=== PATIENT | male | born 1980 | race Caucasian/White ===

== ENCOUNTER 2022-10-07 12:57 | Outpatient (CLI) | payer OTHER, SELFPAY | END 2022-10-07 12:58 | disposition home or self-care (01) | LOC: RAD 12:59 | PROVIDERS: PCP Family Medicine; Visit Provider Internal Medicine Cardiovascular Disease | DX: I77.810 Thoracic aortic ectasia (principal); I34.0 Nonrheumatic mitral (valve) insufficiency | CPT/HCPCS: 93306 ==

== ENCOUNTER 2024-02-23 08:50 | Outpatient (CLI) | payer OTHER, SELFPAY ==
--- OUTSIDE RECORDS SUMMARY | 2024-02-24 12:35 | XMS_ITS ---
Author Name Unknown Organization [facility] Address [address] [place] [address] Care Team Providers Care Lead Material Handler Name Role Phone Unavailable Unavailable Unavailable Surgery Details Not on file Complications Check Surgery Details section. Procedure Estimated Blood Loss Check Surgery Details section. Procedure Findings Check Surgery Details section. Procedure Specimens Taken Check Surgery Details section.
--- OUTSIDE RECORDS SUMMARY | 2024-02-24 12:35 | XMS_ITS | Encounter Summary ---
Author Name Unknown Organization [facility] Address [address] [place] [address] Care Team Providers Care Final Inspector Truck Trailer Name Role Phone Unavailable Primary Care Provider Unavailabl e Reason for Visit * Reason Comments Eye Exam * Appointment Request (Routine) - Closed Specialty Diagnoses / Procedures Referred By Lobo arriaza Referred To Contact Ophthalmology Diagnoses Erosion Corneal Recurrent Bilateral Referral ID Status Reason Start Date Expiration Date Visits Re quested Visits Authorized [id number] Closed 10/20/2023 10/19/2024 1 1 Encounter Details Date Type Department Care Team (Latest Contact Info) Description 11/25/2023 11:15 AM TOOL AND DIE MAKER LEVEL FIVE Comprehensive Visit Department of Ophthalmology in [place], [place] [address] [place] [address] Max Jimenez M.D. [address] [place] [address] Erosion Corneal Recurrent Bilateral (Primary Dx); Dry Eye Syndrome Bilateral Social History Tobacco Use Types Packs/Day Years Used Date Smoking Tobacco: Never Smokeless Tobacco: Never Alcohol Use Standard Drinks/Week Comments Not Currently 1 (1 standard drink = 0.6 oz pur e alcohol) Humiliation, Afraid, Rape, and Kick questionnair e Answer Date Recorded Within the last year, have y ou been afraid of your partner or ex-partner? No 02/28/2023 Within the last year, have y ou been humiliated or emotionally abused in other ways by your partner or ex-partner? No Within the last year, have y ou been kicked, hit, slapped, or otherwise physically hurt by your partner or ex-partner? No 02/28/2023 Within the last year, have y ou been raped or forced to have any kind of sexual activity by your partner or ex-partner? No 02/28/2023 Social Connection and Isolat ion Panel [NHANES] Answer Date Recorded In a typical week, how many times do you talk on the phone with family, friends, or neighbors? More than three times a week 02/28/2023 How often do you get togethe r with friends or relatives? Once a week 02/28/2023 How often do you attend chur ch or pentecostal services? Never 02/28/2023 Do you belong to any clubs o r organizations such as gnosticism groups, unions, fraternal or athletic groups, or school groups? No 02/28/2023 How often do you attend meet ings of the clubs or organizations you belong to? Never 02/28/2023 Are you , , di vorced, , never , or living with a partner? 02/28/2023 AUDIT-C Answer Date Recorded Q1: How often do you have a drink containing alc ohol? Monthly or less 02/28/2023 Q2: How many drinks containi ng alcohol do you have on a typical day when you are drinking? 1 or 2 02/28/2023 Q3: How often do you have si x or more drinks on one occasion? Never 02/28/2023 Overall Financial Resource Strain (CARDIA) Answe r Date Recorded How hard is it for you to pa y for the very basics like food, housing, medical care, and heating? Not hard at all 02/28/2023 PHQ-2 Answer Date Recorded PHQ-2 Score 3 03/08/2023 [facility] - Occupational Stress Questionnaire Answer Date Recorded Do you feel stress - tense, restless, nervous, or anxious, or unable to sleep at night because your mind is troubled all the time - these days? To some extent 02/28/2023 Exercise Vital Sign Answer Date Recorde d On average, how many days pe r week do you engage in moderate to strenuous exercise (like a brisk walk)? 1 day 02/28/2023 On average, how many minutes do you engage in exercise at this level? 20 min 02/28/2023 Hunger Vital Sign Answer Date Recorded Within the past 12 months, y ou worried that your food would run out before you got the money to buy more. Never true 02/29/20 Within the past 12 months, t he food you bought just didn't last and you didn't have money to get more. Never true 02/28/2023 PRAPARE - Transportation Answer Date Re corded In the past 12 months, has l ack of transportation kept you from medical appointments or from getting medications? No 02/08 In the past 12 months, has l ack of transportation kept you from meetings, work, or from getting things needed for daily living? No 02/28/2023 Housing Stability Vital Sign Answer Alex e Recorded In the last 12 months, was t here a time when you were not able to pay the mortgage or rent on time? No 02/28/2023 In the last 12 months, how many places have you lived? 1 02/28/2023 In the last 12 months, was t here a time when you did not have a steady place to sleep or slept in a intermediate (including now)? No 02/28/2023 Depression Answer Date Recor ded PHQ-9 Total Score (max 27) 11 03/08 Nutrition Answer Date Recorded Nutrition: EVOO Fat Source Yes 02/28 On average, how many serving s of fruits and vegetables do you eat per day (serving size is equal to 1 cup or approximately the size of a tennis ball)? 0-1 02/28/2023 Dental Answer Date Recorded Dental: Regular Dentist Yes 10/14/19 Employment Answer Date Recorded Employment status Employed and actively working without restrictions 02/28/2023 Education Answer Date Recorded What is the highest level of school you have completed or the highest degree you have received? Doctorate 12/13/2020 Sex and Gender Information Value Date Recorded Sex Assigned at Male 02/28/2023 10:49 AM CDT Gender Identity Male 12/13/2020 7:34 PM TOOL AND DIE MAKER LEVEL FIVE Sexual Orientation Straight 12/13/2020 7: 34 PM TOOL AND DIE MAKER LEVEL FIVE documented as of this encounter Progress Notes * Max Jimenez M.D. - 11/25/2023 11:15 AM CST # Recurrent erosions both eyes # hx photorefractive keratectomy both eyes, 2013 # sp stromal puncture both eyes 2020 Both eyes are affected, the right worse than left. The symptoms are most noticeable in the morning and are similar to what he experienced with his previous corneal erosions but milder. These have been ongoing for the last 6-8 months has become more frequent. He caught pink eye from his child about a month ago which caused significant pain. He is not currently using any drops. Has previously tried doxycycline with no improvement in sx No erosions on exam today. Recommend Mary Jo ointment at bedtime ongoing Next steps would be to try Punctal plugs to increase moisture on the eye - he will call if he chooses to pursue this option Options to start doxycycline and/or Restasis AND DIE MAKER LEVEL FIVE documented in this encounter Plan of Treatment Upcoming Encounters Date Type Department Care Team (Latest Contact Info) Description 04/30/2024 7:45 AM CDT Clinical Communication Virtual Review in [address] [phone] 05/03/2024 8:30 AM CDT Appointment Department of Laboratory Medicine and Pathology, [facility], in [address] [address] Harini Mc APRN, C.N.P., D.N.P. [address] [place] [phone] 05/03/2024 9:55 AM CDT Appointment Department of Cardiovascular Diseases in [address] [address] Haily Martinez M.D. [address] [place] [phone] Discharge Disposition: Home or Self Care 05/03/2024 1:00 PM CDT Office Visit Department of Cardiovascular Medicine in [address] [phone] Harini Mc APRN, C.N.P., D.N.P. [address] [place] [phone] 05/03/2024 2:30 PM CDT Clinical Support Department of Social Work in [place], [place] [address] [place] [address] documented as of this encounter Visit Diagnoses Diagnosis Erosion Corneal Recurrent Bilateral- Primary Dry Eye Syndrome Bilateral documented in this encounter Additional Health Concerns Assessment Noted Time PHQ-9 Depression Total Score: 11 023 2:31 PM CDT documented as of this encounter
--- OUTSIDE RECORDS SUMMARY | 2024-02-24 12:35 | XMS_ITS | Clinical Summary ---
Author Name Unknown Organization [facility] Address [address] [place] [address] Care Team Providers Care Park Worker Name Role Phone Unavailable Primary Care Provider Unavailabl e Source Comments Patient records contain information from all sites at [facility]. For routine questions regarding patient records, call [phone] during business hours, M-F 8:00 AM - 5:00 PM Central Time. Record requests for emergency care only can be directed to [phone] at any time.[facility] Allergies Active Allergy Reactions Criticality Noted Date Comments Penicillin Rash Medium 09/08/2018 Penicillins Other (see comments) 09/26/2018 Medications Medication Sig Dispensed Refills Start Date End Date Status propranoloL (INDERAL) 10 mg tablet Take 10 mg by mouth daily. Active multivitamin capsule Take 1 capsule by mouth daily. Active cetirizine (ZyrTEC) 10 mg tablet Take 10 mg by mouth as needed. 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 12/22/2023 Orders Only Department of Social Work in [place], [place] [address] [place] [phone] Ani Kiran L.I.C.S.W. Anxiety (Primary Dx); Aneurysm (HCC) from Last 3 Months Family History Medical History Relation Name Comments Genetic disease Brother Scott Valerio Long Qt Other cancer Father Sean Valerio Stomach cance r, Skin cancer Father's Sister Aislinn Kwan Colon cancer Maternal Grandmother Elma Ruffin Genetic disease Mother Lisa oRgers Long Qt Coronary artery disease Mother's Brother Damaso Abernathy y Stent, heart attack Genetic disease Mother's Sister Cookie Gallagher Long Qt Coronary artery disease Paternal Grandfather Sean morejon Heart attack Relation Name Status Comments Brother Scott Valerio Father Sean Valerio Father's Sister Aislinn Kwan Maternal Grandmother Elma Ruffin Mother Lisa Rogers Mother's Brother Damaso Ruffin Mother's Sister Cookie Gallagher Paternal Grandfather Sean Valerio Social History Tobacco Use Types Packs/Day Years Used Date Smoking Tobacco: Never Smokeless Tobacco: Never Tobacco Cessation:Counseling Given: Not Answered Alcohol Use Standard Drinks/Week Comments Not Currently [...] often do you attend chur ch or christianity services? Never 02/28/2023 Do you belong to any clubs o r organizations such as orthodox groups, unions, fraternal or athletic groups, or [...] Answer Date Recorded PHQ-2 Score 3 03/08/2023 [facility] of Occupat ional Health - Occupational Stress [...] money to buy more. Never true 02/29/20 23 Within the past 12 months, t he [...] place to sleep or slept in a long term (including now)? No 02/28/2023 Depression Answer Date [...] CDT Gender Identity Male 12/13/2020 7:34 PM DEGREASING SOLUTION RECLAIMER Sexual Orientation Straight 12/13/2020 7: 34 PM DEGREASING SOLUTION RECLAIMER Last Filed Vital Signs Vital Sign Reading Time Taken Comments Blood Pressure 118/82 03/03/2023 7:33 AM CDT Pulse 48 03/03/2023 7:33 AM CDT Temperature - - Respiratory Rate - - Oxygen Saturation 98% 03/03/2023 7:31 AM CDT Inhaled Oxygen Concentration - - Weight 91.8 kg (202 lb 7.9 oz) 03/03/2023 7:31 A M CDT Height 175.9 cm (5' 9.25) 03/03/2023 7:31 AM CD T Body Mass Index 29.69 03/03/2023 7:31 AM CDT Plan of Treatment Upcoming Encounters Date Type Department Care Team (Latest Contact Info) Description 04/30/2024 7:45 AM CDT Clinical Communication Virtual Review in [place], [place] [address] [place] [address] 05/03/2024 8:30 AM CDT Appointment Department of Laboratory Medicine and Pathology, [facility], in [place], [place] [address] [place] [address] Harini Mc APRN, C.N.P., D.N.P. [address] [place] [phone] 05/03/2024 9:55 AM CDT Appointment Department of Cardiovascular Diseases in [place], [place] [address] [place] [phone] Haily Martinez M.D. [address] [place] [phone] Discharge Disposition: Home or Self Care 05/03/2024 1:00 PM CDT Office Visit Department of Cardiovascular Medicine in [place], [place] [address] [place] [phone] Harini Mc APRN, C.N.P., D.N.P. [address] [place] [phone] 05/03/2024 2:30 PM CDT Clinical Support Department of Social Work in [place], [place] [address] [place] [phone] Health Maintenance Due Date Last Done Comments CT Colonography 1978 Cologuard 1978 Colonoscopy 1978 Colorectal Cancer Screening 1978 FIT 1978 HIV Screening 1978 Hepatitis C Screening 1978 Hepatitis B Vaccines (1 of 3 - 19+ 3-dose series) 1997 DTaP,Tdap,and Td Vaccines (1 - Tdap) 01/16/2005 01/15/2005 Depression Screening (Annual PHQ-2) 10/10/2023 Fasting Glucose for Diabetes Screening 12/19/2023 12/18/2020 Lipid (Cholesterol) Screening 03/02/2028 03/02/2023, 12/18/2020 COVID-19 Vaccine Completed 08/10/2023, , 09/17/2021, Additional history exists Influenza Vaccine Completed 08/10/2023, , 07/21/2021, Additional history exists HPV Vaccines Aged Out No longer eligi ble based on patient's age to complete this topic Pneumococcal vaccine (0-64 years) Aged Out No longer eligible based on patient's age to complete this topic Medical Devices Implanted Type Area Mastic Floor Layer Device Identifier Shelf Expiration Date Model / Serial / Lot Hardware E.G. Pins/Screws/R ods Hardware e.g. pins/screws/ rods Bilateral: Mandible Description:Hardware from pr ior surgery 1995 Procedures Procedure Name Priority Date/Time Associated Diagnosis Comments LIPID PANEL, S Routine 03/02/2023 8:09 AM CDT Dilatation Ascending Aorta (HCC) GLUCOSE, FASTING, S/P Routine 12/18/2020 9:45 AM DEGREASING SOLUTION RECLAIMER Bicuspid Aortic Valve (HCC) Aneurysm Aortic Ascending Without Rupture (HCC) from Last 3 Months or Most Recently Relevant to Health Maintenance Results * (ABNORMAL) Lipid Panel (03/02/2023 8:09 AM CDT) Triglycerides 191(H) mg/dL 03/02/2023 9:13 AM CDT DTL Comment: ----REFERENCE VALUE---- Normal: <150 mg/dL Borderline High: 150-199 mg/dL High: 200-499 mg/dL Very High: > or =500 mg/dL Cholesterol, Total 206(H) mg/dL 2022 9:13 AM CDT DTL Comment: ----REFERENCE VALUE---- Desirable: < 200 mg/dL Borderline High: 200 - 239 mg/dL High: > or = 240 mg/dL Cholesterol, LDL, Calculated 140(H) mg/dL 03/02/2023 9:13 AM CDT DTL Comment: ----REFERENCE VALUE---- Desirable: <100 mg/dL Above Desirable: 100-129 mg/dL Borderline High: 130-159 mg/dL High: 160-189 mg/dL Very High: >=190 mg/dL ----ADDITIONAL INFORMATION---- LDL cholesterol calculated using the Ace/NIH equation. Cholesterol, HDL, S 31(L) >=40 mg/dL 03/02/2023 9:13 AM CDT DTL Cholesterol, Non-HDL, Calculated 175(H) mg/dL 03/02/2023 9:13 AM CDT DTL Comment: ----REFERENCE VALUE---- Desirable: <130 mg/dL Above Desirable: 130-159 mg/dL Borderline High: 160-189 mg/dL High: 190-219 mg/dL Very High: > or =220 mg/dL Fasting (8 HR or more) Yes 03/02/2023 8:51 AM CDT DTL Blood (Blood, Venous) 03/02/2023 8:09 AM CDT 03/02/2023 8:51 AM CDT Haily Martinez M.D. LAB BLOOD ADD-ON Performing Organization Address City/[facility]/ZIP Co de Phone Number [facility] [address] [place] [address], [facility] DTL [facility] [address] [place] [address] * Glucose, Fasting (12/18/2020 9:45 AM DEGREASING SOLUTION RECLAIMER) Glucose, P 88 70 - 100 mg/dL 12/18/2020 10:45 AM DEGREASING SOLUTION RECLAIMER DTL Last Intake 16 hr 12/18/2020 10:11 AM DEGREASING SOLUTION RECLAIMER DTL Blood (Blood, Venous) 12/18/2020 9:45 AM DEGREASING SOLUTION RECLAIMER 12/18/2020 10:11 AM DEGREASING SOLUTION RECLAIMER Haily Martinez M.D. LAB BLOOD NON ADD- ON Performing Organization Address City/[facility]/ZIP Co de Phone Number [facility] [address] [place] [address], [facility] DTL [facility] [address] [place] [address] from Last 3 Months or Most Recently Relevant to Health Maintenance
--- OUTSIDE RECORDS SUMMARY | 2024-02-24 12:35 | XMS_ITS | Encounter Summary ---
Author Name Unknown Organization [facility] Address [address] [place] [address] Care Team Providers Care Wagon Driver Salesperson Name Role Phone Unavailable Primary Care Provider Unavailabl e Reason for Visit * Reason Onset Date Comments Pre-visit Intake 11/22/2023 Encounter Details Date Type Department Care Team (Latest Contact Info) Description 11/22/2023 3:45 PM RADIATION OFFICER Clinical Communication Virtual Review in [place], [place] [address] [place] [address] Pre-visit Intake Social History Tobacco Use Types Packs/Day Years [...] often do you attend chur ch or mandaeism services? Never 02/28/2023 Do you belong to any clubs o r organizations such as denominational groups, unions, fraternal or athletic groups, or [...] Answer Date Recorded PHQ-2 Score 3 03/08/2023 [facility] - Occupational Stress Questionnaire Answer Date Recorded [...] place to sleep or slept in a fdc (including now)? No 02/28/2023 Depression Answer Date [...] CDT Gender Identity Male 12/13/2020 7:34 PM RADIATION OFFICER Sexual Orientation Straight 12/13/2020 7: 34 PM RADIATION OFFICER documented as of this encounter Plan of Treatment Upcoming Encounters Date Type Department Care Team (Latest Contact Info) Description 04/30/2024 7:45 AM CDT Clinical Communication Virtual Review in [place], [place] [address] [place] [address] 05/03/2024 8:30 AM CDT Appointment Department of Laboratory Medicine and Pathology, [facility], in [place], [place] [address] [place] [phone] Harini Mc APRN, C.N.P., D.N.P. [address] [place] [phone] 05/03/2024 9:55 AM CDT Appointment Department of Cardiovascular Diseases in [place], [place] [address] [place] [phone] Haily Martinez M.D. [address] [place] [phone] Discharge Disposition: Home or Self Care 05/03/2024 1:00 PM CDT Office Visit Department of Cardiovascular Medicine in [place], [place] [address] [place] [phone] Harini Mc APRN, C.N.P., D.N.P. [address] [place] [phone] 05/03/2024 2:30 PM CDT Clinical Support Department of Social Work in [place], [place] [address] [place] [phone] documented as of this encounter Visit Diagnoses Not on filedocumented in this encounter Additional Health Concerns Assessment Noted Time PHQ-9 Depression Total Score: 11 023 2:31 PM CDT documented as of this encounter
--- OUTSIDE RECORDS SUMMARY | 2024-02-24 12:35 | XMS_ITS | Encounter Summary ---
Author Name Unknown Organization [facility] Address [address] [place] [address] Care Team Providers Care Supervisor Painting Shipyard Name Role Phone Unavailable Primary Care Provider Unavailabl e Encounter Details Date Type Department Care Team (Latest Contact Info) Description 10/20/2023 Clinical Communication Department of Ophthalmology in [place], [place] [address] [place] [address] Provider, Unknown Social History Tobacco Use Types Packs/Day Years [...] week 02/28/2023 How often do you attend [facility] or church services? Never 02/28/2023 Do you belong to any clubs o r organizations such as samaritan groups, unions, fraternal or athletic groups, or [...] Answer Date Recorded PHQ-2 Score 3 03/08/2023 [facility] of Occupat ional [facility] - Occupational Stress Questionnaire Answer [...] place to sleep or slept in a snf (including now)? No 02/28/2023 Depression Answer Date [...] CDT Gender Identity Male 12/13/2020 7:34 PM BUTTON SPINDLER Sexual Orientation Straight 12/13/2020 7: 34 PM BUTTON SPINDLER documented as of this encounter Plan of Treatment Upcoming Encounters Date Type Department Care Team (Latest Contact Info) Description 04/30/2024 7:45 AM CDT Clinical Communication Virtual Review in [place], [place] 200 [place] [phone] 05/03/2024 8:30 AM CDT Appointment Department of Laboratory Medicine and Pathology, [facility], in [place], [place] [address] [place] [phone] Harini Mc APRN, C.N.P., D.N.P. [address] [place] [phone] 05/03/2024 9:55 AM CDT Appointment Department of Cardiovascular Diseases in [place], [place] [address] [place] [phone] Haily Martinez M.D. [address] [place] [phone] Discharge Disposition: Home or Self Care 05/03/2024 1:00 PM CDT Office Visit Department of Cardiovascular Medicine in [place], [place] [address] [place] [phone] Harini Mc APRN, C.N.P., D.N.P. [address] [place] [phone] 05/03/2024 2:30 PM CDT Clinical Support Department of Social Work in [place], [place] [address] [place] [phone] documented as of this encounter Visit Diagnoses Not on filedocumented in this encounter Additional Health Concerns Assessment Noted Time PHQ-9 Depression Total Score: 11 03/08/ 023 2:31 PM CDT documented as of this encounter
--- OUTSIDE RECORDS SUMMARY | 2024-02-24 12:35 | XMS_ITS | Encounter Summary ---
Author Name Unknown Organization [facility] Address [address] [place] [address] Care Team Providers Care Change Management Manager Name Role Phone Unavailable Primary Care Provider Unavailabl e Reason for Referral * Outpatient (Routine) - Authorized Specialty Diagnoses / Procedures Referred By Lobo arriaza Referred To Contact Social Work Diagnoses Aneurysm (HCC) Ani Kiran L.I.C.S.W. [address] [place] [phone] [facility] Referral ID Status Reason Start Date Expiration Date V isits Requested Visits Authorized [id number] Authorized 12/22/2023 06/22/2025 1 1 Encounter Details Date Type Department Care Team (Late st Contact Info) Description 12/22/2023 Orders Only Department of Social Work in [place], [place] [address] [place] [phone] Ani Kiran L.I.C.S.W. [address] [place] [phone] Anxiety (Primary Dx); Aneurysm (HCC) Social History Tobacco Use Types Packs/Day Years [...] often do you attend chur ch or temple services? Never 02/28/2023 Do you belong to any clubs o r organizations such as bahai groups, unions, fraternal or athletic groups, or [...] Answer Date Recorded PHQ-2 Score 3 03/08/2023 [facility] of Occupat ional Health - Occupational [...] place to sleep or slept in a assisted (including now)? No 02/28/2023 Depression Answer Date [...] CDT Gender Identity Male 12/13/2020 7:34 PM COMMUNITY HEALTH ADVOCATE Sexual Orientation Straight 12/13/2020 7: 34 PM COMMUNITY HEALTH ADVOCATE documented as of this encounter Plan of Treatment Upcoming Encounters Date Type Department Care Team (Latest Contact Info) Description 04/30/2024 7:45 AM CDT Clinical Communication Virtual Review in [place], [place] 200 [place] [address] 05/03/2024 8:30 AM CDT Appointment Department of Laboratory Medicine and Pathology, [facility] in [address] [phone] Harini Mc APRN, C.N.P., D.N.P. [address] [place] [phone] 05/03/2024 9:55 AM CDT Appointment Department of Cardiovascular Diseases in [address] [phone] Haily Martinez M.D. [address] [place] [phone] Discharge Disposition: Home or Self Care 05/03/2024 1:00 PM CDT Office Visit Department of Cardiovascular Medicine in [address] [phone] Harini Mc APRN, C.N.P., D.N.P. [address] [place] [phone] 05/03/2024 2:30 PM CDT Clinical Support Department of Social Work in [address] [phone] Scheduled Referrals Name Type Priority Associated Diagnoses Orde r Schedule Social Work - General consult (clinic) Outpatient Referral Routine Aneurysm (HCC) Expected: 03/26/2024, Expires: 03/23/2025 documented as of this encounter Visit Diagnoses Diagnosis Anxiety- Primary Aneurysm (HCC) documented in this encounter Additional Health Concerns Assessment Noted Time PHQ-9 Depression Total Score: 11 05/30/2 023 2:31 PM CDT documented as of this encounter
--- OUTSIDE RECORDS SUMMARY | 2024-02-24 12:35 | XMS_ITS | Referral Summary ---
Author Name Unknown Organization [facility] Address [address] [place] [address] Care Team Providers Care Prevention Rn Name Role Phone Unavailable Primary Care Provider Unavailabl e Source Comments Patient records contain information from all sites at [facility]. For routine questions regarding patient records, call [phone] during business hours, M-F 8:00 AM - 5:00 PM Central Time. Record requests for emergency care only can be directed to [phone] at any time.[facility] Encounters Date Type Department Care Team Description 02/20/2024 Clinical Communication Department of Cardiovascular Medicine in [place], [place] [address] [place] [address] Cost Estimating ManagerWilner M.D. 12/22/2023 Orders Only Department of Social Work in [place], [place] [address] [place] [address] Ani Kiran, L.I.C.S.W. Anxiety (Primary Dx); Aneurysm (HCC) from Last 3 Months Allergies Active Allergy Reactions Criticality Noted Date [...] Syndrome Dilatation Ascending Aorta Bicuspid Aortic Valve Social History Tobacco Use Types Packs/Day Years [...] often do you attend chur ch or jehovah's witness services? Never 02/28/2023 Do you belong to any clubs o r organizations such as anabaptism groups, unions, fraternal or athletic groups, or [...] Answer Date Recorded PHQ-2 Score 3 03/08/2023 [facility] of Occupat ional Health - Occupational [...] place to sleep or slept in a senior living (including now)? 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 [address] [place] [phone] 05/03/2024 9:55 AM CDT Appointment Department of Cardiovascular Diseases in [address] [address] Haily Martinez M.D. [address] [place] [phone] Discharge Disposition: Home or Self Care 05/03/2024 1:00 PM CDT Office Visit Department of Cardiovascular Medicine in [address] [phone] Harini Mc APRN, C.N.P., D.N.P. 200 [place] [address] 05/03/2024 2:30 PM CDT Clinical Support Department of Social Work in [place], [place] 200 [place] [phone] Medical Devices Implanted Type Area Horticultural Therapist Device Identifier Shelf Expiration Date Model / Serial / Lot Hardware E.G. Pins/Screws/R ods Hardware e.g. pins/screws/ rods Bilateral: Mandible Description:Hardware from pr ior surgery 1995 Procedures Procedure Name Priority Date/Time Associated Diagnosis Comments LIPID PANEL, S Routine 03/02/2023 8:09 AM CDT Dilatation Ascending Aorta (HCC) GLUCOSE, FASTING, S/P Routine 12/18/2020 9:45 AM AUTOMOBILE ASSEMBLER Bicuspid Aortic Valve (HCC) Aneurysm Aortic Ascending [...] M.D. LAB BLOOD ADD-ON Performing Organization Address City/[facility]/ZIP Co de Phone Number [facility] 200 [place] [address], [facility] DTL [facility] 200 [place] [address] * Glucose, Fasting (12/18/2020 9:45 AM AUTOMOBILE ASSEMBLER) Glucose, P 88 70 - 100 mg/dL 12/18/2020 10:45 AM AUTOMOBILE ASSEMBLER DTL Last Intake 16 hr 12/18/2020 10:11 AM AUTOMOBILE ASSEMBLER DTL Blood (Blood, Venous) 12/18/2020 9:45 AM AUTOMOBILE ASSEMBLER 12/18/2020 10:11 AM AUTOMOBILE ASSEMBLER Haily Martinez M.D. LAB BLOOD NON ADD- ON [facility] 200 [place] [address], [facility] DTL [facility] 200 [place] [address] from Last 3 Months or Most Recently Relevant to Health Maintenance
--- OUTSIDE RECORDS SUMMARY | 2024-02-24 12:35 | XMS_ITS | Encounter Summary ---
Author Name Unknown Organization [facility] Address [address] [place] [address] Care Team Providers Care Veneer Drier Tailer Name Role Phone Unavailable Primary Care Provider Unavailabl e Encounter Details Date Type Department Care Team (Latest Contact Info) Description 02/20/2024 Clinical Communication Department of Cardiovascular Medicine in [place], [place] [address] [place] [address] Apartment Community ManagerWilner M.D. Social History Tobacco Use Types Packs/Day Years [...] week 02/28/2023 How often do you attend [facility] or anglican services? Never 02/28/2023 Do you belong to any clubs o r organizations such as jewish groups, unions, fraternal or athletic groups, or [...] Answer Date Recorded PHQ-2 Score 3 03/08/2023 [facility] of Occupat ional [facility] - Occupational Stress Questionnaire Answer Date Recorded [...] place to sleep or slept in a alf (including now)? 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 [address] [place] [phone] 05/03/2024 9:55 AM CDT Appointment Department of Cardiovascular Diseases in [place], [place] [address] [place] [address] Haily Martinez M.D. [address] [place] [phone] Discharge Disposition: Home or Self Care 05/03/2024 1:00 PM CDT Office Visit Department of Cardiovascular Medicine in [place], [place] [address] [place] [address] Harini Mc APRN, C.N.P., D.N.P. [address] [place] [phone] 05/03/2024 2:30 PM CDT Clinical Support Department of Social Work in [place], [place] [address] [place] [address] Scheduled Orders Name Type Priority Associated Diagnoses Orde r Schedule Lipid Panel Lab Routine Nonrheumatic Aortic Valve Insufficiency Expected: 02/20/2024, Expires: 05/22/2025 Comprehensive Metabolic Panel Lab Routine Nonrheumatic Aortic Valve Insufficiency Expected: 02/20/2024, Expires: 05/22/2025 documented as of this encounter Visit Diagnoses Diagnosis Nonrheumatic Aortic Valve Insufficiency- Primary documented in this encounter Additional Health Concerns Assessment Noted Time PHQ-9 Depression Total Score: 11 023 2:31 PM CDT documented as of this encounter
== END 2024-02-23 08:51 | disposition home or self-care (01) ==
LOC: NFLDREF 02-24 12:33
PROVIDERS: PCP Family Medicine; Referring Provider Family Medicine; Visit Provider Family Medicine
DX: E78.5 Hyperlipidemia, unspecified (principal); Z83.49 Family history of other endocrine, nutritional and metabolic diseases
CPT/HCPCS: 80053; 80061; 82525

== ENCOUNTER 2024-05-01 08:39 | Outpatient (CLI) | payer OTHER, SELFPAY ==
--- OUTSIDE RECORDS SUMMARY | 2024-05-01 08:43 | XMS_ITS | Encounter Summary ---
Author Organization [facility] Address [address] [place] [address] Care Team Providers Care Power Tool Repair Technician Name Role Phone Unavailable Primary Care Provider Unavailabl e Encounter Details Date Type Department Care Team (Latest Contact Info) Description 02/20/2024 Clinical Communication Department of Cardiovascular Medicine in [place], [place] [address] [place] [address] Photographer LithographicWilner M.D. Social History Tobacco Use Types Packs/Day [...] week 02/28/2023 How often do you attend [facility] or oriental orthodox services? Never 02/28/2023 Do you belong to [...] Answer Date Recorded PHQ-2 Score 3 03/08/2023 [facility] of Occupat critical 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 [address] [place] [phone] 05/03/2024 9:55 AM CDT Appointment Department of Cardiovascular Diseases in [place], [place] [address] [place] [phone] Haily Martinez M.D. [address] [place] [phone] Discharge Disposition: Home or Self Care 05/03/2024 1:00 PM CDT Office Visit Department of Cardiovascular Medicine in [place], [place] [address] [place] [address] Harini Mc APRN, C.N.P., D.N.P. [address] [place] [phone] 05/03/2024 2:30 PM CDT Clinical Support Department of Social Work in [place], [place] [address] [place] [address] Scheduled Orders Name Type Priority Associated Diagnoses [...]
--- OUTSIDE RECORDS SUMMARY | 2024-05-01 08:43 | XMS_ITS | Encounter Summary ---
Author Organization [facility] Address [address] [place] [address] Care Team Providers Care Senior Engineering Technician Name Role Phone Unavailable Primary Care Provider Unavailabl e Reason for Visit * Reason Onset Date Comments Pre-visit Intake 04/30/2024 Encounter Details Date Type Department Care Team (Latest Contact Info) Description 04/30/2024 7:45 AM CDT Clinical Communication Virtual Review in [place], [place] 200 [place] [address] Pre-visit Intake Social History Tobacco Use Types Packs/Day Years Used Date Smoking Tobacco: Never Passive Smoke Exposure: Past Smokeless Tobacco: Never Tobacco Cessation:Counseling Given: Not Answered Alcohol Use Standard Drinks/Week Comments Yes 1 (1 standard drink = 0.6 oz pur e alcohol) [facility] Utilities Answer Date Recorded In the past 12 months has e [employer], gas, oil, or water [employer] threatened to shut off services in your home? No 04/29/2024 Humiliation, Afraid, Rape, and Kick questionnair e [...] often do you attend chur ch or judaism services? Never 02/28/2023 Do you belong to any clubs o r organizations such as worship groups, unions, fraternal or athletic groups, or [...] Answer Date Recorded PHQ-2 Score 3 03/08/2023 [facility] Occupational Stress Questionnaire Answer Date [...] to strenuous exercise (like a brisk walk)? 4 days 04/29/2024 On average, how many minutes do you engage in exercise at this level? 20 min 04/29/2024 Hunger Vital Sign Answer Date Recorded Within the past 12 months, y ou worried that your food would run out before you got the money to buy more. Never true 04/29/20 24 Within the past 12 months, t he food you bought just didn't last and you didn't have money to get more. Never true 04/29/2024 PRAPARE - Transportation Answer Date Re corded In the past 12 months, has l ack of transportation kept you from medical appointments or from getting medications? No 04/10 In the past 12 months, has l ack of transportation kept you from meetings, work, or from getting things needed for daily living? No 04/29/2024 Depression Answer Date Recor ded PHQ-9 Total Score (max 27) 11 03/08 Nutrition Answer Date Recorded On average, how many serving s of fruits and vegetables do you eat per day (serving size is equal to 1 cup or approximately the size of a tennis ball)? 0-2 04/29/2024 Dental Answer Date Recorded Dental: Regular Dentist Yes 10/14/19 Employment Answer Date Recorded Employment status Employed and actively working without restrictions 04/29/2024 Housing Stability Answer Date Recorded What is your living situation today? I have a [facility] place to live 04/29/2024 Education Answer Date Recorded What is the highest level of school you have completed or the highest degree you have received? Doctorate 12/13/2020 Sex and Gender Information Value Date Recorded Sex Assigned at Male 02/28/2023 10:49 AM CDT Gender Identity Male 12/13/2020 7:34 PM SENIOR ATTORNEY Sexual Orientation Straight 12/13/2020 7: 34 PM SENIOR ATTORNEY documented as of this encounter Plan of Treatment Upcoming Encounters Date Type Department Care Team (Latest Contact Info) Description 05/03/2024 8:30 AM CDT Appointment Department of Laboratory Medicine and Pathology, [facility] in [place], [place] [phone] Harini Mc APRN, C.N.P., D.N.P. 200 [place] [phone] 05/03/2024 9:55 AM CDT Appointment Department of Cardiovascular Diseases in [place], [place] 200 [place] [phone] [place] [phone] Discharge Disposition: Home or Self Care 05/03/2024 1:00 PM CDT Office Visit Department of Cardiovascular Medicine in [place], [place] [address] [place] [phone] Harini Mc APRN, C.N.P., D.N.P. [address] [place] [phone] 05/03/2024 2:30 PM CDT Clinical Support Department of Social Work in [place], [place] [address] [place] [phone] documented as of this encounter Visit Diagnoses Not on filedocumented in this encounter Additional Health Concerns Assessment Noted Time PHQ-9 Depression Total Score: 11 023 2:31 PM CDT documented as of this encounter
--- OUTSIDE RECORDS SUMMARY | 2024-05-01 08:43 | XMS_ITS ---
Author Organization [facility] Address [address] [place] [address] Care Team Providers Care Hat Steamer Name Role Phone Unavailable Unavailable Unavailable Surgery Details Not on file Complications Check Surgery Details section. Procedure Estimated Blood Loss Check Surgery Details section. Procedure Findings Check Surgery Details section. Procedure Specimens Taken Check Surgery Details section.
--- OUTSIDE RECORDS SUMMARY | 2024-05-01 08:43 | XMS_ITS | Clinical Summary ---
Author Organization [facility] Address [address] [place] [address] Care Team Providers Care Force Dispatcher Name Role Phone Unavailable Primary Care Provider Unavailabl e Source Comments Patient records contain information from all sites at [facility]. For routine questions regarding patient records, call [phone] during business hours, M-F 8:00 AM - 5:00 PM Central Time. Record requests for emergency care only can be directed to [phone] at any time.[facility] Allergies Active Allergy Reactions Criticality Noted Date Comments Penicillin Rash Medium 09/08/2018 Penicillins Other (see comments) 09/26/2018 Medications Medication Sig Dispensed Refills Start Date End Date Status propranoloL (INDERAL) 10 mg tablet Take 10 mg by mouth daily. Active cetirizine (ZyrTEC) 10 mg tablet Take 10 mg by mouth as needed. During the Summer months Active polyethylene glycol-electrolyt es (Golytely) 236-22.74-6.74 -5.86 gram solution DRINK 240 ML BY MOUTH EVERY 10 MINUTES; UNTIL FECAL EFFLUENT IS CLEAR 02/28/2024 Active multivitamin capsule Take 1 capsule by mouth daily. 04/30/2024 Discontinued ( Therapy completed) Active Problems Problem Noted Date Diagnosed Date Nonrheumatic Aortic Valve Insufficiency Long QT Syndrome Family History Long QT Syndrome Dilatation Ascending Aorta Bicuspid Aortic Valve Encounters Date Type Department Care Team Description 04/30/2024 7:45 AM CDT Clinical Communication Virtual Review in [place], [place] [address] [place] [address] Pre-visit Intake 02/20/2024 Clinical Communication Department of Cardiovascular Medicine in [place], [place] [address] [place] [phone] Sports Book Board AttendantWilner alvarez M.D. from Last 3 Months Family History Medical History Relation Name Comments Genetic disease Brother Scott Valerio Long Qt Other cancer Father Sean Valerio Stomach cance r, Skin cancer Father's Sister Aislinn Kwan Colon cancer Maternal Grandmother Elma Ruffin Genetic disease Mother Lisa Rogers Long Qt Coronary artery disease Mother's Brother Damaso Abernathy y Stent, heart attack Genetic disease Mother's Sister Cookie Gallagher Long Qt Coronary artery disease Paternal Grandfather Sean Perez sbkevan Heart attack Relation Name Status Comments Brother [...] drink = 0.6 oz pur e alcohol) [facility] [employer] Answer Date Recorded In the past 12 months has e [employer], oil, or water [employer] threatened to shut off services in your [...] week 02/28/2023 How often do you attend [facility] or zoroastrianism services? Never 02/28/2023 Do you belong to any clubs o r organizations such as confucianist groups, unions, fraternal or athletic groups, or [...] Answer Date Recorded PHQ-2 Score 3 03/08/2023 [facility] of Occupat ional Health - Occupational [...] your living situation today? I have a [facility] place to live 04/29/2024 Education Answer Date Recorded What is the highest level of school you have completed or the highest degree you have received? 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 200 [place] [phone] 05/03/2024 9:55 AM CDT Appointment Department of Cardiovascular Diseases in [place], [place] [address] [place] [address] Haily Martinez M.D. [address] [place] [phone] Discharge Disposition: Home or Self Care 05/03/2024 1:00 PM CDT Office Visit Department of Cardiovascular Medicine in [place], [place] [address] [place] [phone] Harini Mc APRN, C.N.P., D.N.P. [address] [place] [phone] 05/03/2024 2:30 PM CDT Clinical Support Department of Social Work in [place], [place] [address] [place] [phone] Health Maintenance Due Date Last Done Comments CT Colonography 1978 Cologuard 1978 Colonoscopy 1978 Colorectal Cancer Screening 1978 FIT 1978 HIV Screening 1978 Hepatitis C Screening 1978 Hepatitis B Vaccines (1 of 3 - 19+ 3-dose series) 1997 DTaP,Tdap,and Td Vaccines (1 - Tdap) 01/16/2005 01/15/2005 Depression Screening (Annual PHQ-2) 10/10/2023 Fasting Glucose for Diabetes Screening 12/19/2023 12/18/2020 Influenza Vaccine (#1) 2024 , 08/26/2022, 07/21/2021, Additional history exists Lipid (Cholesterol) Screening 03/02/2028 03/02/2023, 12/18/2020 COVID-19 Vaccine Completed 08/10/2023, , 09/17/2021, Additional history exists HPV Vaccines Aged Out No longer eligi ble based on patient's age to complete this topic Pneumococcal vaccine (0-64 years) Aged Out No longer eligible based on patient's age to complete this topic Medical Devices Implanted Type Area Finish Specialist Device Identifier Shelf Expiration Date Model / Serial / Lot Hardware E.G. Pins/Screws/R ods Hardware e.g. pins/screws/ rods Bilateral: Mandible Description:Hardware from pr ior surgery 1995 Procedures Procedure Name Priority Date/Time Associated Diagnosis Comments LIPID PANEL, S Routine 03/02/2023 8:09 AM CDT Dilatation Ascending Aorta (HCC) GLUCOSE, FASTING, S/P Routine 12/18/2020 9:45 AM ECONOMIC HISTORY TEACHER Bicuspid Aortic Valve (HCC) Aneurysm Aortic Ascending [...] M.D. LAB BLOOD ADD-ON Performing Organization Address City/[facility]/ZIP Co de Phone Number [facility] [address] [place] [address], [facility] DTL [facility] 200 [place] [address] * Glucose, Fasting (12/18/2020 9:45 AM ECONOMIC HISTORY TEACHER) Glucose, P 88 70 - 100 mg/dL 12/18/2020 10:45 AM ECONOMIC HISTORY TEACHER DTL Last Intake 16 hr 12/18/2020 10:11 AM ECONOMIC HISTORY TEACHER DTL Blood (Blood, Venous) 12/18/2020 9:45 AM ECONOMIC HISTORY TEACHER 12/18/2020 10:11 AM ECONOMIC HISTORY TEACHER Haily Martinez M.D. LAB BLOOD NON ADD- ON Performing Organization Address [facility] Co de Phone Number [facility] 200 [place] [address], [facility] DTL [facility] 200 [place] [address] from Last 3 Months or Most Recently Relevant to Health Maintenance
--- OUTSIDE RECORDS SUMMARY | 2024-05-01 08:43 | XMS_ITS | Referral Summary ---
Author Organization [facility] Address [address] [place] [address] Care Team Providers Care Host Coordinator Name Role Phone Unavailable Primary Care Provider Unavailabl e Source Comments Patient records contain information from all sites at [facility]. For routine questions regarding patient records, call [phone] during business hours, M-F 8:00 AM - 5:00 PM Central Time. Record requests for emergency care only can be directed to [phone] at any time.[facility] Encounters Date Type Department Care Team Description 04/30/2024 7:45 AM CDT Clinical Communication Virtual Review in [place], [place] [address] [place] [address] Pre-visit Intake 02/20/2024 Clinical Communication Department of Cardiovascular Medicine in [address] [phone] Beveling Machine Operator Wilner M.D. from Last 3 Months Allergies Active Allergy [...] drink = 0.6 oz pur e alcohol) [facility] Utilities Answer Date Recorded In the past 12 months has th e electric, gas, oil, or water company threatened to shut off services in your [...] 02/28/2023 How often do you attend chur or denominational services? Never 02/28/2023 Do you belong to any clubs o r organizations such as hoahaoism groups, unions, fraternal or athletic groups, or [...] Answer Date Recorded PHQ-2 Score 3 03/08/2023 [facility] - Occupational Stress Questionnaire Answer Date [...] your living situation today? [facility] 04/29/2024 Education Answer Date Recorded What is the highest level of school you have completed or the highest degree you have received? Doctorate 12/13/2020 Sex and Gender Information Value Date Recorded Sex Assigned at Male 02/28/2023 10:49 AM CDT Gender Identity Male 12/13/2020 7:34 PM ASSOCIATE PROFESSOR PHYSICIAN Sexual Orientation Straight 12/13/2020 7: 34 PM ASSOCIATE PROFESSOR PHYSICIAN Last Filed Vital Signs Vital Sign Reading [...] Appointment Department of Laboratory Medicine and Pathology, [facility] in [place], [place] [address] [place] [phone] Harini Mc APRN, C.N.P., D.N.P. [address] [place] [phone] 05/03/2024 9:55 AM CDT Appointment Department of Cardiovascular Diseases in [place], [place] [address] [place] [phone] Haily Martinez M.D. [address] [place] [phone] Discharge Disposition: Home or Self Care 05/03/2024 1:00 PM CDT Office Visit Department of Cardiovascular Medicine [place], [place] [address] [place] [phone] Harini Mc APRN, C.N.P., D.N.P. [address] [place] [phone] 05/03/2024 2:30 PM CDT Clinical Support Department of Social Work in [place], [place] [address] [place] [address] Medical Devices Implanted Type Area Warehouse Person Device Identifier Shelf Expiration Date Model / Serial / Lot Hardware E.G. Pins/Screws/R ods Hardware e.g. pins/screws/ rods Bilateral: Mandible Description:Hardware from pr ior surgery 1995 Procedures Procedure Name Priority Date/Time Associated Diagnosis Comments LIPID PANEL, S Routine 03/02/2023 8:09 AM CDT Dilatation Ascending Aorta (HCC) GLUCOSE, FASTING, S/P Routine 12/18/2020 9:45 AM ASSOCIATE PROFESSOR PHYSICIAN Bicuspid Aortic Valve (HCC) Aneurysm Aortic Ascending [...] CDT Haily Martinez M.D. LAB BLOOD ADD-ON [facility] [place] [address] [place] [address], [facility] DTL [facility] [address] [place] [address] * Glucose, Fasting (12/18/2020 9:45 AM ASSOCIATE PROFESSOR PHYSICIAN) Glucose, P 88 70 - 100 mg/dL 12/18/2020 10:45 AM ASSOCIATE PROFESSOR PHYSICIAN DTL Last Intake 16 hr 12/18/2020 10:11 AM ASSOCIATE PROFESSOR PHYSICIAN DTL Blood (Blood, Venous) 12/18/2020 9:45 AM ASSOCIATE PROFESSOR PHYSICIAN 12/18/2020 10:11 AM ASSOCIATE PROFESSOR PHYSICIAN Haily Martinez M.D. LAB BLOOD NON ADD- ON [facility] [place] [address] [place] [address], [facility] DTL [facility] [address] [place] [address] from Last 3 Months or Most Recently Relevant to Health Maintenance
--- NOTE | 2024-05-01 10:01 | W.ANESCHARGE ---
Anesthesia Charges Start Date/Time Anesthesia Start Date: 05/01/24 Anesthesia Start Time: 09:30 Stop Date/Time Anesthesia Stop Date: 05/01/24 Anesthesia Stop Time: 10:00
--- NOTE | 2024-05-01 10:42 | W.ANESCHARGE ---
Anesthesia Charges Start Date/Time Anesthesia Start Date: 05/01/24 Anesthesia Start Time: 09:30 Stop Date/Time Anesthesia Stop Date: 05/01/24 Anesthesia Stop Time: 10:00
== END 2024-05-01 08:40 | disposition home or self-care (01) ==
LOC: OP CLINIC 08:41
PROVIDERS: PCP Family Medicine; Visit Provider Surgery
DX: Z12.11 Encounter for screening for malignant neoplasm of colon (principal); K62.1 Rectal polyp; Z83.719 Family history of colon polyps, unspecified
CPT/HCPCS: 00811; 45385; 88305; J2704

== ENCOUNTER 2025-01-19 15:15 | Emergency (ER) | payer BC, SELFPAY ==
--- OUTSIDE RECORDS SUMMARY | 2025-01-19 15:17 | XMS_ITS | Continuity of Care Document ---
Author Organization [facility] Address [address] [place] [address] Phone Care Team Providers Care Crawler Dragline Operator Name Role Phone Neva Damaso TYLER Unavailable Unavailable Procedures Procedure Date Visit No Documentation Intermediate Established Patient Visit D Advance Directives Directive Yes / No Effective Date File Name No Information Encounters Encounter Description Practice Location Reason(s) For Visit Diagnoses Date Provider Providers Copied on Encounter [facility], [address] [place] [address], [id number], [place] tel:[phone] [facility] Office No Information 7 Neva Damaso. [address] [place] [address], [id number] , [place]. tel:[phone] Referring Provider: Yosvany Perez, [address] [facility] [address], [place], [address]. tel:[phone] Intermediate Established Patient Visit [facility], [address] [place] [address], [id number], tel:[phone] [facility] Right foot painMetatarsalg ia of right footPlantar wart 6 Neva Damaso. [address] [place], [place], [id number] , [place]. tel:[phone] Family History Family Member Type Diagnosis Age At Onset No Information Payers Payer name Insurance type Covered democrat ID Authormariusza wesly(s) [facility] [id number] Social History Type Description Quantity Date Captured Comments Sex Male Smoking Status No Information Chief Complaint And Reason For Visit No Information Reason For Referral Reason For Referral No Information Plan Of Treatment Date Type Action Status Referral Ordered: X-RAY Ankle 2 Views Min RT ordered Referral Ordered: X-RAY Foot 3 Views RT ordered History Of Present Illness Encounter Date Complaint History Of Prese nt Illness No Information Functional Status Date Functional Assessmen t No Information Instructions Date Instruction Additional Infor mation No Information Assessments Type Assessment Date No Information Patient Care Teams Name Effective Dates (start - stop) Status Members No Information
--- OUTSIDE RECORDS SUMMARY | 2025-01-19 15:17 | XMS_ITS | Clinical Summary ---
Author Organization [facility] Address [address] [place] [address] Care Team Providers Care Check Processor Name Role Phone Francesco Zepeda MD Primary Care Provider [phone] Allergies Active Allergy Reactions Criticality Noted Date Comments Penicillins *Unknown - Childhood Rxn 09/26/2018 Medications multivitamin (MVI) tablet Take 1 tablet by mouth once daily. 0 11/17/2018 Active propranoloL (INDERAL) 10 mg tabletIndication s:Long QT syndrome type 1 Take 1 Tablet (10 mg) by mouth once daily. 90 Tablet 3 06/29/2024 Active Active Problems Problem Noted Date Diagnosed Date Long QT syndrome type 1 10/19/2019 Ascending aorta dilatation 10/19/2019 Bicuspid aortic valve 10/19/2019 Nonrheumatic aortic valve insufficiency 10/19/19 20 Family history of long QT syndrome 11/17/2018 Social History Tobacco Use Types Packs/Day Years Used Date Smoking Tobacco: Never Smokeless Tobacco: Never Alcohol Use Standard Drinks/Week Comments Yes 0 (1 standard drink = 0.6 oz pur e alcohol) rare Social Connections Answer Date Recorded Frequency of Communication with Friends and Fami ly Not on file 2021 Financial Resource Strain Answer Date R ecorded Difficulty of Paying Living Expenses Not on file 2021 Difficulty of Paying Living Expenses Not on file 2021 Sex and Gender Information Value Date Recorded Sex Assigned at Not on file Legal Sex Male 9:56 AM CDT Gender Identity Not on file Sexual Orientation Not on file Obstetrics History Last Filed Vital Signs Vital Sign Reading Time Taken Comments Blood Pressure 121/82 06/29/2024 8:11 AM CDT Pulse 47 06/29/2024 8:11 AM CDT Temperature - - Respiratory Rate - - Oxygen Saturation 94% 06/29/2024 8:11 AM CDT Inhaled Oxygen Concentration - - Weight 87.4 kg (192 lb 11.2 oz) 06/29/2024 8:11 AM CDT Height 175.3 cm (5' 9) 06/29/2024 8:11 AM CDT Body Mass Index 28.46 06/29/2024 8:11 AM CDT Plan of Treatment Health Maintenance Due Date Last Done Comments Tdap 1989 Depression screening for age 12+ 1990 HIV for age 15-65 1993 Hepatitis C screening for ag e 18-79 1996 Pneumococcal series for age 6-49 (1 of 2 - PCV) 1997 Tetanus booster 1998 Colonoscopy through age 75 2023 Lipids for age 45-75 2023 COVID-19 vaccine series ( season) 2024 08/10/2023, 08/03/2022, 09/17/2021, Additional history exists Influenza Vaccine (Season Ended) 2025 BMI (ht and wt on same day) for age 18+ 06/29/2025 06/29/2024, 12/17/2022, 02/01/2020, Additional history exists Insurance [employer] [place] [id number] Care Teams Check Processor Relationship Specialty Start Date End Date Ailabouni, Francesco, MD [address] [place] [address] PCP - General Family Practice 02/01/20
--- OUTSIDE RECORDS SUMMARY | 2025-01-19 15:17 | XMS_ITS | Clinical Summary ---
Author Organization [facility] Address [address] [place] [address] Care Team Providers Care Console Assembler Name Role Phone Unavailable Primary Care Provider Unavailabl e Source Comments Patient records contain information from all sites at [facility]. For routine questions regarding patient records, call [phone] during business hours, M-F 8:00 AM - 5:00 PM Central Time. Record requests for emergency care only can be directed to [phone] at any time.[facility] Allergies Active Allergy Reactions Criticality Noted Date Comments Penicillin Rash Medium 09/08/2018 Penicillins Other (see comments) 09/26/2018 Medications * This document contains information received from the source organization and may not represent a complete record from that organization. propranoloL (INDERAL) 10 mg tablet Take 10 mg by mouth daily. Active cetirizine (ZyrTEC) 10 mg tablet Take 10 mg by mouth as needed. During the Summer months Active polyethylene glycol-electrol ytes (Golytely) 236-22.74-6.74 -5.86 gram solution DRINK 240 ML BY MOUTH EVERY 10 MINUTES; UNTIL FECAL EFFLUENT IS CLEAR 02/28/2024 Active Active Problems Problem Noted Date Diagnosed Date Nonrheumatic Aortic Valve Insufficiency Long QT Syndrome Family History Long QT Syndrome Dilatation Ascending Aorta Bicuspid Aortic Valve Family History Medical History Relation Name Comments [...] drink = 0.6 oz pur e alcohol) [facility] Utilities Answer Date Recorded In the past 12 months has e electric, gas, oil, or water company [...] often do you attend chur ch or amish services? Never 02/28/2023 Do you belong to any clubs o r organizations such as zoroastrianism groups, unions, fraternal or athletic groups, or [...] Answer Date Recorded PHQ-2 Score 3 03/08/2023 [facility] - Occupational Stress [...] your living situation today? I have a [facility] place to live 04/29/2024 Education Answer Date Recorded What is the highest level of school you have completed or the highest degree you have received? 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 Gender Identity Male 12/13/2020 7:34 PM ADAPTED PHYSICAL EDUCATION TEACHER Sexual Orientation Straight 12/13/2020 7: 34 PM ADAPTED PHYSICAL EDUCATION TEACHER Last Filed Vital Signs Vital Sign Reading Time Taken Comments Blood Pressure 110/70 05/03/2024 12:47 PM CDT Pulse 55 05/03/2024 12:44 PM CDT Temperature - - Respiratory Rate - - Oxygen Saturation 97% 05/03/2024 12:44 PM CDT Inhaled Oxygen Concentration - - Weight 80.3 kg (177 lb 0.5 oz) 05/03/2024 12:44 PM CDT Height 176 cm (5' 9.29) 05/03/2024 12:44 PM CDT Body Mass Index 25.92 05/03/2024 12:44 PM CDT Plan of Treatment Health Maintenance Due Date Last Done Comments CT Colonography 1978 Cologuard 1978 Colonoscopy 1978 Colorectal Cancer Screening 1978 FIT 1978 HIV Screening 1978 Hepatitis C Screening 1978 Hepatitis B Vaccines (1 of 3 - 19+ 3-dose series) 1997 COVID-19 Vaccine ( season) 2024 08/10/2023, 08/03/2022, 09/17/2021, Additional history exists Influenza Vaccine (#1) 2024 , 08/26/2022, 07/21/2021, Additional history exists Depression Screening (Annual PHQ-2) 10/10/2024 Fasting Glucose for Diabetes Screening 05/03/2027 05/03/2024, 12/18/2020 Lipid (Cholesterol) Screening 05/03/2029 05/03/2024, 03/02/2023, 12/18/2020 DTaP,Tdap,and Td Vaccines (2 - Td or Tdap) 02/27/2034 02/28/2024, 01/15/2005 IPV Vaccines Aged Out No longer eligi ble based on patient's age to complete this topic Pneumococcal vaccine (0-49 years) Aged Out No longer eligible based on patient's age to complete this topic Medical Devices Implanted Type Area Efficiency Analyst Device Identifier Shelf Expiration Date Model / Serial / Lot Hardware E.G. Pins/Screws/R ods Hardware e.g. pins/screws/ rods Bilateral: Mandible Description:Hardware from pr ior surgery 1995 Procedures Procedure Name Priority Date/Time Associated Diagnosis Comments COMPREHENSIVE METABOLIC PANEL, S/P Routine 05/03/2024 8:40 AM CDT Nonrheumatic Aortic Valve Insufficiency LIPID PANEL, S Routine 05/03/2024 8:40 AM CDT Nonrheumatic Aortic Valve Insufficiency from Last 3 Months or Most Recently Relevant to Health Maintenance Results * (ABNORMAL) Lipid Panel (05/03/2024 8:40 AM CDT) Triglycerides 74 mg/dL 05/03/2024 9:40 AM CDT DTL Comment: ----REFERENCE VALUE---- Normal: <150 mg/dL Borderline High: 150-199 mg/dL High: 200-499 mg/dL Very High: > or =500 mg/dL Cholesterol, Total 171 mg/dL 2023 9:40 AM CDT DTL Comment: ----REFERENCE VALUE---- Desirable: < 200 mg/dL Borderline High: 200 - 239 mg/dL High: > or = 240 mg/dL Cholesterol, LDL, Calculated 122 mg/dL 05/03/2024 9:40 AM CDT DTL Comment: ----REFERENCE VALUE---- Desirable: <100 mg/dL Above Desirable: 100-129 mg/dL Borderline High: 130-159 mg/dL High: 160-189 mg/dL Very High: >=190 mg/dL ----ADDITIONAL INFORMATION---- LDL cholesterol calculated using the Ace/NIH equation. Cholesterol, HDL, S 35(L) >=40 mg/dL 05/03/2024 9:40 AM CDT DTL Cholesterol, Non-HDL, Calculated 136 mg/dL 05/03/2024 9:40 AM CDT DTL Comment: ----REFERENCE VALUE---- Desirable: <130 mg/dL Above Desirable: 130-159 mg/dL Borderline High: 160-189 mg/dL High: 190-219 mg/dL Very High: > or =220 mg/dL Fasting (8 HR or more) No 05/03/2024 8:40 AM CDT DTL Blood (Blood, Venous) 05/03/2024 8:40 AM CDT 05/03/2024 9:18 AM CDT Harini Mc APRN, C.N.P., D.N.P. LAB BLOOD AD D-ON Final Result [facility] [address] [place] [address], [facility] [address] [place] [address] * Comprehensive Metabolic Panel (05/03/2024 8:40 AM CDT) Pathologist [facility] Potassium, S 4.0 3.6 - 5.2 mmol/L 05/03/2024 9:40 AM CDT DTL Sodium, S 140 135 - 145 mmol/L 05/03/2024 9:40 AM CDT DTL Chloride, S 104 98 - 107 mmol/L 05/03/2024 9:40 AM CDT DTL Bicarbonate, S 27 22 - 29 mmol/L 05/03/2024 9:40 AM CDT DTL Anion Gap 9 7 - 15 05/03/2024 9:40 AM CDT DTL BUN (Blood Urea Nitrogen), S 12 8 - 24 mg/dL 05/03/2024 9:40 AM CDT DTL Creatinine 1.30 0.74 - 1.35 mg/dL 05/03/2024 9:40 AM CDT DTL Estimated GFR (eGFR) 69 >=60 mL/min/BS A 05/03/2024 9:40 AM CDT DTL Comment: Estimated GFR calculated using the 2020 CKD_EPI creatinine equation. Calcium, Total, S 9.4 8.6 - 10.0 mg/dL 05/03/2024 9:40 AM CDT DTL Glucose, S 73 70 - 140 mg/dL 05/03/2024 9:40 AM CDT DTL Protein, Total, S 7.2 6.3 - 7.9 g/dL 05/03/2024 9:40 AM CDT DTL Albumin, S 4.5 3.5 - 5.0 g/dL 05/03/2024 9:40 AM CDT DTL Aspartate Aminotransferase (AST), S 22 8 - 48 U/L 05/03/2024 9:40 AM CDT DTL Alkaline Phosphatase, S 65 40 - 129 U/L 05/03/2024 9:40 AM CDT DTL Alanine Aminotransferase (ALT), S 19 7 - 55 U/L 05/03/2024 9:40 AM CDT DTL Bilirubin, Total, S 0.6 0.0 - 1.2 mg/dL 05/03/2024 9:40 AM CDT DTL Blood (Blood, Venous) 05/03/2024 8:40 AM CDT 05/03/2024 9:18 AM CDT Harini Mc APRN, C.N.P., D.N.P. LAB BLOOD AD D-ON Final Result [facility] [address] [place] [address], [facility] [address] [place] [address] from Last 3 Months or Most Recently Relevant to Health Maintenance Insurance [facility] [place] [id number]
[2025-01-19 15:21] VITALS: BP 112/73; PULSE 91; RESP 18; TEMP 36.2; O2SAT 95; BMI 25.8
--- NOTE | 2025-01-19 16:08 | ED_ITS ---
HPI - Wound/Laceration General Chief Complaint: Laceration/Wound Stated Complaint: Right leg laceration Time Seen by Provider: 01/19/25 15:27 History of Present Illness HPI narrative: This 44-year-old male comes in with a laceration on his right anterior thigh. 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 He has a 1.5 cm linear laceration in the midportion of his anterior thigh. His tetanus status is up-to-date. Related Data Home Medications ?Medication ?Instructions ?Recorded ?Confirmed cetirizine 10 mg tablet (Zyrtec) 10 mg PO QDAY PRN 05/17/22 06/27/24 multivitamin 1 tab PO QDAY 05/17/22 06/27/24 propranolol 10 mg tablet 10 mg PO DAILY 05/17/22 06/27/24 artificial tears(hypromellose) 0.3 1 drp ophthalmic (eye) BID PRN 02/20/24 06/27/24 % eye gel (Systane Gel) gentamicin 0.3 % eye drops 2 drp ophthalmic (eye) QID PRN 02/20/24 06/27/24 Previous Rx's ?Medication ?Instructions ?Recorded peg 3350-electrolytes 236 240 ml PO Q10M #4,000 mL 02/28/24 gram-22.74 gram-6.74 gram-5.86 gram solution (Golytely) Allergies Allergy/AdvReac Type Severity Reaction Status Date / Time Penicillin Allergy Intermediate Rash Uncoded 06/27/24 11:07 Review of Systems Status of ROS: Reports: 10 or more systems reviewed and unremarkable except as noted in History and below Narrative: Constitutional: No fevers, no weight gain or loss. Eyes: No discharge. No vision changes. HENT: No congestion, no sore throat, no ear pain. Cardiovascular: No chest pain, no palpitations. Respiratory: No shortness of breath, no wheezes, no cough. Gastrointestinal: No abdominal pain, no vomiting, no diarrhea. Genitourinary: No dysuria, no hematuria. Musculoskeletal: Normal range of motion. Skin: No rashes, no pruritis. Neurological: No dizziness, weakness, sensory change, speech change. Endo/Heme/Allergies: No bruising or bleeding. No polydipsia. Pysch: no suicidality, no anxiety, no insomnia. All other systems reviewed and are negative. PFSH PFSH Medical History (Updated 01/19/25 @ 16:10 by Sabino Aguilar MD) Plantar wart ?B07.0 - Plantar wart (ICD-10) History of coronary angiogram (09/2018) ?Z98.890 - Other specified postprocedural states (ICD-10) Gastroesophageal reflux disease ?K21.9 - Gastro-esophageal reflux disease without esophagitis (ICD-10) Surgical History (Updated 05/05/22 @ 16:09 by Guerline Reilly) History of vasectomy (04/26/19) ?Z98.52 - Vasectomy status (ICD-10) History of photorefractive keratectomy (PRK) (2015) ?Z98.890 - Other specified postprocedural states (ICD-10) History of mandibular surgery (1994) ?Z98.890 - Other specified postprocedural states (ICD-10) History of hernia repair ?Z98.890 - Other specified postprocedural states (ICD-10) ?Z87.19 - Personal history of other diseases of the digestive system (ICD-10) History of elbow surgery (09/2012) ?Z98.890 - Other specified postprocedural states (ICD-10) History of appendectomy (1996) ?Z90.49 - Acquired absence of other specified parts of digestive tract (ICD- 10) Family History (Updated 05/05/22 @ 16:11 by Guerline Reilly) Maternal Grandmother Colon cancer Paternal Grandfather Coronary artery disease Uncle Coronary artery disease Family/Other Depression Brother Long QT syndrome Mother Long QT syndrome Father Stomach cancer Social History (Updated 02/24/24 @ 08:39 by Adela Sanchez ~ CTA) Narrative: 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 NH in paternal grandfather in 50s and in maternal uncle in 40s. 2. Colon cancer in maternal grandmother at age 55. 3. Stomach cancer in father. 4. Skin cancer in aunt. 5. Depression in cousin and brothers. 6. Long QT syndrome in mother, 1 brother and a nephew. 7. Family history of alcoholism. What is your current living situation?: I presently have a place to live Problems where you live: no known problems In the past 12 months, utilities in danger of being shut off: no In past 12 months, lack of transportation kept you from medical appts, meetings, work, or getting things needed for daily living: no In the past 12 mos, have been you worried that your food would run out before you had money to buy more?: never true In the past 12 mos, the food you bought just didn't last and you didn't have money to buy more?: never true Smoking Status: Never smoker How often do you have a drink containing alcohol: 2-4 times a month AUDIT-C Alcohol total score: 2 Non-prescribed substance use: denies use How often does anyone, including family, friends and others, physically hurt you : never How often does anyone, including family, friends and others, insult or talk down to you: rarely How often does anyone, including family, friends and others, threaten you with harm: never How often does anyone, including family, friends and others, scream or curse at you: never Health Related Social Needs: Other personal risk factors, not elsewhere classified (Z91.89) Exam Narrative: Exam Narrative: Constitutional: Well-developed, well-nourished, no acute distress. HEENT: Normocephalic, atraumatic. Neck: Normal range of motion. Nontender. Supple. Heart: Intact distal pulses. Lungs: No chest discomfort. No wheezes, rhonchi, or rales. Abdomen: Nontender. Back: Normal range of motion. Extremities: Normal range of motion. No injury. Skin: Intact. No rash. Warm. No erythema or pallor. Neurologic: No altered sensation. No weakness. Alert and oriented. Psychiatric: No suicidality. No anxiety or depression. No insomnia. Nursing notes and vitals signs are reviewed. Const: Vital Signs, click to edit/add: Vital Signs - 24 hr 01/19/25 15:21 Temperature 97.2 F L Pulse Rate [Pulse Oximeter] 91 Respiratory Rate 18 Blood Pressure [Ri ght Upper Arm] 112/73 Pulse Oximetry 95 Oxygen Delivery Me thod Room Air Course Vital Signs Vital signs: Initial Vital Signs Temperature 97.2 F L 01/19/25 15:21 Temperature Source Temporal Artery Scan 01/19/25 15:21 Pulse Rate 91 01/19/25 15:21 Respiratory Rate 18 01/19/25 15:21 Blood Pressure 112/73 01/19/25 15:21 Blood Pressure Mean 86 01/19/25 15:21 Blood Pressure Position Supine 01/19/25 15:21 Pulse Oximetry 95 01/19/25 15:21 Oxygen Delivery Method Room Air 01/19/25 15:21 Vital Signs Temperature 97.2 F L 01/19/25 15:21 Pulse Rate 91 01/19/25 15:21 Respiratory Rate 18 01/19/25 15:21 Blood Pressure 112/73 01/19/25 15:21 Pulse Oximetry 95 01/19/25 15:21 Oxygen Delivery Method Room Air 01/19/25 15:21 Temperature 97.2 F L 01/19/25 15:21 Pulse Rate 91 01/19/25 15:21 Respiratory Rate 18 01/19/25 15:21 Blood Pressure 112/73 01/19/25 15:21 Pulse Oximetry 95 01/19/25 15:21 Oxygen Delivery Method Room Air 01/19/25 15:21 MDM - Wound/Laceration MDM Narrative Medical decision making narrative: This patient has a laceration on his thigh that would benefit from suture repair. After anesthesia with 1% lidocaine with epinephrine the wound was cleansed and explored to its base. Three sutures were placed in interrupted fashion using 4.0 Ethilon suture to approximate the wound edges. Instructions regarding wound care were given. Discharge Plan Discharge Clinical Impression: Laceration Patient Disposition: Home, Self-Care Condition: Improved Additional Instructions: Keep wound clean and dry. Follow-up for suture removal in 7-10 days. Return if worsening. Prescriptions: No Action propranolol 10 mg tablet 10 mg PO DAILY multivitamin Tablet 1 tab PO QDAY cetirizine [Zyrtec] 10 mg tablet 10 mg PO QDAY PRN gentamicin 0.3 % drops 2 drp ophthalmic (eye) QID PRN Rx Instructions: 2 qtts OU QID until clear x 48 hours Systane Gel 0.3 % gel 1 drp ophthalmic (eye) BID PRN Rx Instructions: apply small amount under R eye lid twice a day peg 3350-electrolytes [Golytely] 236-22.74-6.74 -5.86 gram recon soln 240 ml PO Q10M Qty: 4000 0RF Rx Instructions: until fecal effluent is clear Follow Up/Referrals: Francesco Zepeda MD [Primary Care Provider] - Stand Alone Forms: [employer] Instructions
--- OUTSIDE RECORDS SUMMARY | 2025-01-19 16:23 | XMS_ITS | Continuity of Care Document ---
Author Organization [facility] Address [address] [place] [address] Phone Care Team Providers Care Registered Physical Therapist Name Role Phone Neva Damaso TYLER Unavailable Unavailable Procedures Procedure Date Visit No Documentation Intermediate Established Patient Visit D Advance Directives Directive Yes / No Effective Date File Name No Information Encounters Encounter Description Practice Location Reason(s) For Visit Diagnoses Date Provider Providers Copied on Encounter [facility], [address] [place] [address], [id number], [place] tel:[phone] [facility] Office No Information 7 Neva Damaso. [address] [place] [address], [id number] , [place]. tel:[phone] Referring Provider: Yosvany Perez, [address] [facility] [address], [place], [address]. tel:[phone] Intermediate Established Patient Visit [facility], [address] [place] [address], [id number], tel:[phone] [facility] Right foot painMetatarsalg ia of right footPlantar wart 6 Neva Damaso. [address], [place], [id number] , [place]. tel:[phone] Family History Family Member Type Diagnosis Age At Onset No Information Payers Payer name Insurance type Covered republican ID Authormariusza wesly(s) [facility] [id number] Social History Type Description Quantity Date Captured [...]
--- OUTSIDE RECORDS SUMMARY | 2025-01-19 16:23 | XMS_ITS | Clinical Summary ---
Author Organization [facility] Address [address] [place] [id number] Care Team Providers Care Regional Construction Manager Name Role Phone Francesco Zepeda MD Primary Care Provider [phone] Allergies Active Allergy Reactions Criticality Noted Date [...] Additional history exists Insurance [employer] [place] [id number] Care Teams Regional Construction Manager Relationship Specialty Start Date End Date Ailabouni, Francesco, MD [address] [place] [id number] PCP - General Family Practice 02/01/20
== END 2025-01-19 16:22 | disposition home or self-care (01) ==
LOC: ED 16:21
PROVIDERS: Emergency Provider Emergency Medicine Emergency Medical Services; PCP Family Medicine
DX: S71.112A Laceration without foreign body, left thigh, initial encounter (principal); W27.8XXA Contact with other nonpowered hand tool, initial encounter
CPT/HCPCS: 12001; 99283; 99284

== ENCOUNTER 2025-02-26 07:48 | Outpatient (CLI) | payer BC, SELFPAY | END 2025-02-26 07:49 | disposition home or self-care (01) | LOC: NFLDREF 03-04 16:55 | PROVIDERS: PCP Family Medicine; Referring Provider Family Medicine; Visit Provider Family Medicine | DX: E78.5 Hyperlipidemia, unspecified (principal) | CPT/HCPCS: 80053; 80061 ==